=== PATIENT | male | born 1970 | race Caucasian/White ===

== ENCOUNTER → 2019-08-14 09:17 | Outpatient (CLI) | payer BC, SELFPAY ==
--- NOTE | ~2019-08-14 | XR_ITS ---
XR_[id number]_CR 08/14/2019 09:36 Indication: Cervicalgia Procedure: 4 view cervical spine Comparison: No prior studies for comparison. Findings: Normal cervical alignment. There is mild disc narrowing at C5-6. No prevertebral soft tissu e abnormality. There are mild uncinate degenerative changes. No fracture or traumatic malalignment. O dontoid process within normal limits. Lung apices are unremarkable. Impression: 1: Mild cervical spondylosis. Reviewed, dictated and finalized at location A. Impression: 1: Mild cervical spondylosis.
--- NOTE | ~2019-08-14 | XR_ITS ---
EXAMINATION: XR shoulder RT min 2V DATE: 08/14/2019 09:36 INDICATION: Right shoulder pain TECHNIQUE: AP internally and externally rotated, AP oblique externally rotated and axillary views of the right shoulder were obtained. COMPARISON: None FINDINGS: Normal alignment. No fracture. Glenohumeral joint is normal. Acromioclavicular joint is normal. Soft tissues are unremarkable. IMPRESSION: Normal right shoulder radiographs. Reviewed, dictated and finalized at location A.
== END ==
PROVIDERS: PCP Internal Medicine; Visit Provider Nurse Practitioner
DX: M25.511 Pain in right shoulder (principal); M47.892 Other spondylosis, cervical region
CPT/HCPCS: 72040; 73030

== ENCOUNTER → 2019-09-04 08:41 | Outpatient (CLI) | payer BC, SELFPAY ==
--- NOTE | ~2019-09-04 | MR_ITS ---
EXAMINATION: MR cervical spine wo con DATE: 09/04/2019 09:50 INDICATION: Cervicalgia TECHNIQUE: Magnetic resonance imaging (MRI) of the cervical spine was performed without intravenous c ontrast. Sequences included sagittal T2-weighted FSE, sagittal T2-weighted FS FSE, sagittal T1-weight ed FSE, axial MERGE and axial T2-weighted FSE. COMPARISON: None FINDINGS: Bone alignment is normal. Vertebral body heights are normal. Bone marrow signal intensity is normal . Mild disc desiccation with relatively preserved disc heights throughout the cervical spine. Cord si gnal intensity is normal. Cervical soft tissues are unremarkable. The following disc levels are speci fically discussed: C2-C3: The disc does not extend beyond the endplate margin. There is minimal bilateral uncovertebral joint osteoarthritis. There is mild bilateral facet joint osteoarthritis. There is no neural foramina l stenosis. There is no central canal stenosis. C3-C4: Disc is mildly bulging. There is mild bilateral uncovertebral joint osteoarthritis. There is m ild right and moderate left facet joint osteoarthritis. There is mild bilateral neural foraminal sten osis. There is minimal central canal stenosis. C4-C5: Disc is mildly bulging with annular fissure and superimposed small right paracentral disc prot rusion. There is mild left and moderate right uncovertebral joint osteoarthritis. There is mild right and severe left facet joint osteoarthritis. There is mild left and mild to moderate right neural for aminal stenosis. There is mild central canal stenosis. C5-C6: Disc is mildly bulging with central annular fissure. There is mild left and moderate right unc overtebral joint osteoarthritis. There is mild right and moderate left facet joint osteoarthritis. Th ere is mild bilateral neural foraminal stenosis. There is mild central canal stenosis. C6-C7: Disc is minimally bulging. There is mild bilateral uncovertebral joint osteoarthritis. There i s mild bilateral facet joint osteoarthritis. There is no neural foraminal stenosis. There is no centr al canal stenosis. C7-T1: The disc does not extend beyond the endplate margin. There is mild left and moderate right unc overtebral joint osteoarthritis. There is no facet joint osteoarthritis. There is no neural foraminal stenosis. There is no central canal stenosis. IMPRESSION: 1. Mild to moderate cervical spondylosis. Reviewed, dictated and finalized at location A.
--- NOTE | ~2019-09-04 | MR_ITS ---
EXAMINATION: MR lumbar spine wo con DATE: 09/04/2019 09:51 INDICATION: Low back pain TECHNIQUE: Magnetic resonance imaging (MRI) of the lumbar spine was performed without intravenous con trast. Sequences included sagittal T2-weighted FSE, sagittal T2-weighted FS FSE, sagittal T1-weighted FSE, and axial T2-weighted FSE. COMPARISON: 02/09/2017 FINDINGS: 3 mm retrolisthesis L5 on S1. Vertebral body heights are normal. Mild disc height loss at L4-L5 and L 5-S1 with increased fibrovascular degenerative endplate changes at L5-S1. Remaining discs are normal. Otherwise normal bone marrow signal. The conus medullaris terminates at L2. There is normal signal i n the caudal spinal cord. Paravertebral soft tissues are unremarkable. The following disc levels are specifically discussed: T12-L1: The disc does not extend beyond the endplate margin. There is minimal bilateral facet joint o steoarthritis. There is no neural foraminal stenosis. There is no central canal stenosis. L1-L2: The disc does not extend beyond the endplate margin. There is minimal bilateral facet joint os teoarthritis. There is no neural foraminal stenosis. There is no central canal stenosis. L2-L3: Disc is minimally bulging with superimposed small left foraminal zone disc protrusion There is mild bilateral facet joint osteoarthritis. There is mild left neural foraminal stenosis. There is no central canal stenosis. L3-L4: Disc is minimally bulging. There is mild right and mild to moderate left facet joint osteoarth ritis. There is mild left neural foraminal stenosis. There is no central canal stenosis. L4-L5: Mild diffuse disc bulge with annular fissure. There is mild left and minimal right facet joint osteoarthritis. There is mild bilateral neural foraminal stenosis. There is no central canal stenosi s. L5-S1: Mild diffuse disc bulge with annular fissure. There is mild right and mild to moderate left fa cet joint osteoarthritis. There is mild right and moderate left neural foraminal stenosis. There is n o central canal stenosis. IMPRESSION: 1. Minimal progression of still mild lumbar spondylosis. Reviewed, dictated and finalized at location A.
== END ==
PROVIDERS: PCP Internal Medicine
DX: M47.892 Other spondylosis, cervical region (principal); M47.896 Other spondylosis, lumbar region
CPT/HCPCS: 72141; 72148

== ENCOUNTER 2019-12-22 00:32 | Outpatient (CLI) | payer BC, SELFPAY ==
[2019-12-22 18:30] LABS: SARS-CoV-2 RNA PCR Negative
== END 2019-12-22 00:33 | disposition home or self-care (01) ==
LOC: ANHCOVIDDT 00:32
PROVIDERS: PCP Internal Medicine; Visit Provider Internal Medicine Gastroenterology
DX: Z01.812 Encounter for preprocedural laboratory examination (principal); Z11.59 Encounter for screening for other viral diseases
CPT/HCPCS: 87635; C9803; U0003

== ENCOUNTER 2019-12-25 02:06 | Day surgery (SDC) | payer BC, SELFPAY ==
[2019-12-19 09:38] VITALS: BMI 32.5
--- NOTE | 2019-12-25 07:42 | P.PNAN_ITS ---
Anes - Initial Pre Proc Eval Procedure: Operation Date: 12/25/19 10:30 Proposed Procedures p Screening Colonoscopy - Elie Baca MD Date/Time: 12/25/19 07:42 Surgeon: Elie Baca MD Pre Op Diagnosis: Neoplasm Screening Patient Data Age: 49 Gender: M Height: 1.91 m Weight: 118.18 kg Allergies Allergy/AdvReac Type Severity Reaction Status Date / Time No Known Allergies Allergy Verified 12/25/19 09:24 Home Medications Medication Instructions Recorded Confirmed Type lansoprazole 30 mg capsule,delayed 30 mg PO DAILY #90 cap 07/10/19 12/25/19 Rx release atorvastatin 20 mg tablet See Rx Instructions .ROUTE 10/16/19 12/25/19 Rx .COMPLEX #90 tablet cholecalciferol (vitamin D3) 125 mcg PO DAILY 12/19/19 12/25/19 History [Vitamin D3] lactobacillus combination no.8 3,000 mmu cells PO DAILY 12/19/19 12/25/19 His tory [Adult Probiotic] magnesium oxide 400 mg PO DAILY 12/19/19 12/25/19 History Patient hx anesthesia problems: none Family hx anesthesia problems: none PMFSH Past Medical History Medical History (Updated 12/25/19 @ 07:41 by Paul Stanton DO) Fatty liver Gastro-esophageal reflux disease without esophagitis Hyperlipidemia Family History Family History (Updated 10/04/18 @ 07:04 by DOCTOR UNKNOWN) Father Family history of pancreatic cancer Family history of malignant neoplasm of kidney Patient's father is Acute myocardial infarction Mother Patient's mother is in good health Patient's mother is Other Cerebrovascular accident Family history of allergic disorder Family history of cardiovascular disease Family history of kidney disease Social History Social History Smoking status: Never smoker Alcohol intake: current Anes - Eval Final PreProcedure Day of Procedure 12/25/19 07:42 Patient weight: obese Heart: regular rate and rhythm Lungs: clear to auscultation and normal air movement Airway: Mallampati scale Neurological: alert and oriented Last oral intake: >/= 8 hours ASA classification: III Emergent: no Anesthetic plan: proceed Anesthesia type and monitoring: general GIVS and standard monitoring Informed Consent: The patient's anesthetic plan and its attendant risks and benefits were discussed with the patient/family/POA. Questions were solicited and answers provided to the satisfaction of the patient/family/POA.
[2019-12-25] MEDS: LACTATED RINGERS 1,000 ML 150 ML IV CONT (09:39)
[2019-12-25 09:47] VITALS: BP 122/87; PULSE 88; RESP 18; TEMP 36.1; O2SAT 97
--- NOTE | 2019-12-25 10:34 | PM.HPGS ---
History of Present Illness History of Present Illness Consent: Risks, benefits, and alternatives have been discussed and questions answered. Patient agrees to proceed with procedure. Chief complaint: Neoplasm Screening Narrative: Jonathan Gomez is a 49 year old male here for his first screening colonoscopy. Review of Systems Constitutional: Constitutional: Denies headache(s) and Denies weakness Eyes: Eyes: Denies blurry vision ENT: Reports Normal hearing present, Denies headache(s) and Denies neck pain Cardiovascular: Cardiovascular: Denies chest pain and Denies dyspnea Respiratory: Respiratory: Denies dyspnea Gastrointestinal: Gastrointestinal: Reports no additional gastrointestinal complaints Genitourinary: Genitourinary: Denies dysuria Musculoskeletal: Musculoskeletal: Denies neck pain Integumentary/Breasts: Skin/Breast: Denies dry skin Neurologic: Reports Normal hearing present, Denies headache(s) and Denies weakness Psychiatric: Psychiatric: Denies anxiety Endocrine: Endocrine: Denies change in body appearance Hematologic/Lymphatic: Hematologic/Lymphatic: Denies easy bleeding Allergic/Immunologic: Allergic/Immunologic: Denies urticaria PMF Past Medical History Medical History (Updated 12/25/19 @ 10:34 by Elie Baca MD) Colon cancer screening Fatty liver Gastro-esophageal reflux disease without esophagitis Hyperlipidemia Family History Family History (Updated 10/04/18 @ 07:04 by DOCTOR UNKNOWN) Father Family history of pancreatic cancer Family history of malignant neoplasm of kidney Patient's father is Acute myocardial infarction Mother Patient's mother is in good health Patient's mother is Other Cerebrovascular accident Family history of allergic disorder Family history of cardiovascular disease Family history of kidney disease Social History Social History Smoking status: Never smoker Alcohol intake: current Meds Home Medications and Allergies Home Medications Medication Instructions Recorded Confirmed Type lansoprazole 30 mg capsule,delayed 30 mg PO DAILY #90 cap 07/10/19 12/25/19 Rx release atorvastatin 20 mg tablet See Rx Instructions .ROUTE 10/16/19 12/25/19 Rx .COMPLEX #90 tablet cholecalciferol (vitamin D3) 125 mcg PO DAILY 12/19/19 12/25/19 History [Vitamin D3] lactobacillus combination no.8 3,000 mmu cells PO DAILY 12/19/19 12/25/19 History [Adult Probiotic] magnesium oxide 400 mg PO DAILY 12/19/19 12/25/19 History Allergies Allergy/AdvReac Type Severity Reaction Status Date / Time No Known Allergies Allergy Verified 12/25/19 09:24 Vital Signs Vital Signs - 24 hr 12/25/19 09:47 Temperature 96.9 F L Pulse Rate 88 Respiratory Rate 18 Blood Pressure 122/87 Pulse Oximetry 97 Exam Const: General: comfortable and no acute distress HENMT: General nose exam: Normal nares present Eyes: General: appearance normal, both eyes and all related structures Neck: Neck: no JVD Resp: Auscultation: clear to auscultation bilaterally Cardio: Rate: regular rate Rhythm: regular rhythm GI: Inspection: non-distended GI Palp: Yes Soft to palpation Skin: General skin exam: normal color Neuro: General: gait normal Speech: normal speech Extrem: General: normal to inspection Psych: Mental Status: mental status grossly normal Assessment and Plan Assessment and plan (1) Colon cancer screening: Code(s): Z12.11 - Encounter for screening for malignant neoplasm of colon Status: Acute Assessment and Plan: will proceed with colonoscopy
[2019-12-25 11:00] VITALS: BP 111/79; PULSE 90; RESP 18; O2SAT 92
[2019-12-25 11:10] VITALS: BP 107/76; PULSE 74; RESP 19; O2SAT 94
[2019-12-25 11:20] VITALS: BP 107/75; PULSE 72; RESP 20; O2SAT 95
== END 2019-12-25 11:40 | disposition home or self-care (01) ==
PROVIDERS: PCP Internal Medicine; Visit Provider Internal Medicine Gastroenterology
PROC: 0DJD8ZZ Inspection of Lower Intestinal Tract, Via Natural or Artificial Opening Endoscopic (ICD-10-PCS; CPT 45378; principal; 2019-12-25 10:30)
DX: Z12.11 Encounter for screening for malignant neoplasm of colon (principal); D12.2 Benign neoplasm of ascending colon; K76.0 Fatty (change of) liver, not elsewhere classified; K21.9 Gastro-esophageal reflux disease without esophagitis; E78.5 Hyperlipidemia, unspecified; E66.9 Obesity, unspecified; Z68.33 Body mass index [BMI] 33.0-33.9, adult
CPT/HCPCS: 45385; 88305; J2001; J2704; J7120

== ENCOUNTER 2022-06-02 10:01 | Outpatient (CLI) | payer BC, SELFPAY ==
--- NOTE | 2022-06-02 11:00 | NEURO_ITS ---
Impression: # Complains of numbness of upper extremities. # Normal nerve conduction study. # Normal needle/EMG exam. # Clinical correlation recommended. Motor Nerve Conduction Upper Extremities Median Nerve Conduction Velocity (m/sec) Terminal Latency (msec) Response Voltage(mV) Elbow-Wrist Wrist Elbow Wrist Right 55 3.4 2 3 Left 59 3.4 3 2 Ulnar Nerve Conduction Velocity (m/sec) Terminal Latency (msec) Response Voltage(mV) Above Elbow Below Elbow Wrist Above Elbow Below Elbow Wrist Right 56 2.7 4 6 Left 60 3.1 4 5 F-Wave Latency Median (ms) Ulnar (ms) Right 29.5 30.6 Left 29.2 31.0 Sensory Nerve Conduction Upper Extremities Median Nerve Stimulation Terminal Latency (msec) Wrist/Digit Response Voltage (uV) Wrist Right 3.2/3.0 55/34 Left 2.8/2.8 59/58 Ulnar Nerve Stimulation Terminal Latency (msec) Wrist/Digit Response Voltage (uV) Wrist Right 2.8 45 Left 2.7 54 Radial Nerve Terminal Latency (msec) Response Voltage(mV) Right 2.2 15 Left 2.3 12 Left Right Muscles Examined Fibrillation Fasciculation Scarcity Voltage Duration Left Right Left Right Left Right Left Right Left Right X X Deltoid X X Biceps X X Brachioradialis X X Triceps X X Pronator Teres X X Ext Indicis X X Ext Digitorum X X Abd Poll Brev X X 1st Dorsal Interosseus X X Abd Dig Min MTDD
== END 2022-06-02 10:02 | disposition home or self-care (01) ==
LOC: ANHNEURO 10:06
PROVIDERS: PCP Internal Medicine; Visit Provider Internal Medicine
DX: R20.2 Paresthesia of skin (principal)
CPT/HCPCS: 95886; 95911

== ENCOUNTER → 2022-06-28 10:42 | Outpatient (CLI) | payer BC, SELFPAY ==
--- NOTE | ~2022-06-28 | XR_ITS ---
Cervical Spine: AP, lateral, open-mouth views Clinical History: Pain Findings: The normal lordotic curve is maintained. The vertebral bodies and posterior elements appea r intact. The intervertebral disc spaces are well maintained. There is mild facet joint degenerative change at C4-C5 and C5-C6. Pre-vertebral soft tissues are unremarkable. Impression: Mild facet arthropathy, as above. Reviewed, dictated and finalized at location . UTER COMPOSITOR Impression: Mild facet arthropathy, as above.
== END ==
PROVIDERS: PCP Internal Medicine; Visit Provider Internal Medicine
DX: M54.2 Cervicalgia (principal); M12.88 Other specific arthropathies, not elsewhere classified, other specified site
CPT/HCPCS: 72040

== ENCOUNTER → 2022-07-22 07:33 | Outpatient (CLI) | payer BC, SELFPAY ==
--- NOTE | ~2022-07-22 | MR_ITS ---
MRI of the cervical spine Clinical History: Radiculopathy Technique: Axial T2-weighted and gradient images, and sagittal T1-weighted, T2-weighted, and STIR kiki ges were acquired. Findings: There is no fracture or subluxation of the cervical spine. Vertebral bodies maintain normal height and alignment. No bone marrow signal abnormality seen. At C2-C3, C3-C4, there is no disc bulge or herniation. No spinal canal stenosis or neural foraminal n arrowing at these levels. At C4-C5, there is minimal disc osteophyte complex, most prominent towards the right paracentral chapo on. No rod spinal canal stenosis or cord compression. There is mild right neural foraminal narrowin g. Left neural foramen preserved. At C5-C6, there is no significant disc bulge or herniation. No spinal canal stenosis, cord compressio n, or neural foraminal narrowing. At C6-C7, there is no disc bulge or herniation. No spinal canal stenosis, cord compression, or neural foraminal narrowing. No abnormal signal seen in the spinal cord. Paravertebral soft tissues are unremarkable. Impression: Probable mild right neural foraminal narrowing at C4-C5, related to disc osteophyte complex. [place], dictated [place] [facility] 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
== END ==
PROVIDERS: PCP Internal Medicine; Visit Provider Nurse Practitioner Family
DX: M54.12 Radiculopathy, cervical region (principal)
CPT/HCPCS: 72141

== ENCOUNTER → 2022-09-16 09:33 | Outpatient (CLI) | payer BC, SELFPAY ==
--- NOTE | ~2022-09-16 | XR_ITS ---
EXAMINATION: XR lumbar spine 2-3V DATE: 09/16/2022 10:20 INDICATION: Low back pain TECHNIQUE: Anteroposterior and lateral views of the lumbar spine, and cone-down lateral view of the l umbosacral junction were obtained. COMPARISON: 04/28/2012 FINDINGS: There is no fracture. There are 2 mm of retrolisthesis of L5 on S1. There is moderate loss of intervertebral disc space height at L5-S1. The vertebral body heights are maintained. Small degene rative osteophytes project from the anterior endplates of multiple vertebral bodies. IMPRESSION: 1. Moderate lumbar spondylosis at L5-S1 without acute findings. Reviewed, dictated and finalized at location L.
== END ==
PROVIDERS: PCP Physical Medicine & Rehabilitation; Visit Provider Physical Medicine & Rehabilitation
DX: M47.897 Other spondylosis, lumbosacral region (principal)
CPT/HCPCS: 72100

== ENCOUNTER 2022-11-09 05:37 | Emergency (ER) | payer BC, SELFPAY ==
--- NOTE | ~2022-11-09 | CT_ITS ---
Non-contrast CT scan of the Abdomen and Pelvis Clinical indication: Left flank pain Technique: 2.5 mm axial scans were obtained through the abdomen and pelvis without intravenous or or al contrast. Dose reduction technique was used on this scan by utilizing automated exposure control a nd iterative reconstruction technique. The dose-length product (DLP) was 834.36 mGy-cm. COMPARISON: 11/11/2015 Findings: Images through the lung bases reveal stable subcentimeter left lower lobe pulmonary nodule s. Punctate bilateral nonobstructing renal stones are present. 2 mm distal left ureteral stone noted. Pr obable minimal fullness of left renal collecting system. The liver, spleen, pancreas, gallbladder, and adrenals appear normal. There is no aortic aneurysm. There is no evidence of bowel obstruction. Normal appendix. Small fat-containing umbilical hernia pre sent. Images through the pelvis were performed. There is no evidence of ascites or lymphadenopathy. Urinary bladder otherwise unremarkable. Prostate gland and seminal vesicles are unremarkable. Impression: 2 mm distal left ureteral stone with minimal fullness of left renal collecting system. Additional punctate bilateral nonobstructing renal stones. Small fat-containing umbilical hernia. Reviewed, dictated and finalized at [facility]. Impression: 2 mm distal left ureteral stone with minimal fullness of left renal collecting system. Additional punctate bilateral nonobstructing renal stones. Small fat-containing umbilical hernia.
[2022-11-09 05:42] VITALS: BP 156/94; PULSE 70; RESP 16; TEMP 36.4; O2SAT 100
[2022-11-09 05:58] VITALS: PULSE 68; RESP 16; TEMP 36.8; O2SAT 99
[2022-11-09 06:11] LABS: Basophils Percent Auto 0.2 % (0.2-1.2); Eosinophils Percent Auto 0.6 % (0-4.4); Hematocrit 43.9 % (42.0-52.0); Hemoglobin 14.9 g/dL (14.0-18.0); Immature Granulocyte Absolute 0.05 K/mm3 (0.00-0.031); Immature Granulocyte Percent A 0.9 % (0-0.5); Lymphocytes Absolute Auto 2.76 K/mm3 (0.9-3.2); Lymphocytes Percent Auto 50.6 % (18.3-44.2); Mean Corpuscular HGB Conc 33.9 g/dl (32-36); Mean Corpuscular Hemoglobin 29.8 pg (26-34); Mean Corpuscular Volume 87.8 fl (80-100); Mean Platelet Volume 8.8 fl (7.4-10.4); Monocytes Percent Auto 17.8 % (2.6-8.5); Neutrophils Absolute Auto 1.6 K/mm3 (1.3-6.7); Neutrophils Percent Auto 29.9 % (45.5-73.1); Platelet Count Result 180 k/mm3 (150-375); Red Cell Distribution Width 12.8 % (11.5-14.5); White Blood Count 5.5 K/mm3 (4.5-10.0)
[2022-11-09 06:17] LABS: Appearance Urine Clear (Clear); Bacteria Urine None Seen /hpf; Bilirubin Urine Negative (Negative); Blood Urine 3+ (Negative); Color Urine Yellow (Yellow); Glucose Urine UA Negative (Negative); Ketones Urine Negative (Negative); Leukocyte Esterase Ur Negative LEU/UL (Negative); Nitrate Urine Negative (Negative); Non Pathogenic Casts 0-2; Protein Urine 1+ mg/dL (Negative); RBC Urine 51-100 /hpf (0-2); Specific Grav Ur 1.025 (1.001-1.035); Squamous Epithelial Cell Urine None seen /hpf (Few); WBC Urine 0-5 /hpf; pH Urine 5.5 (5.0-9.0)
[2022-11-09 06:21] LABS: Alanine Aminotransferase 42 U/L (6-50); Albumin Level 4.9 g/dL (3.5-5.1); Alkaline Phosphatase 91 U/L (38-126); Anion Gap 8 mmol/L (8-16); Aspartate Amino Transferase 30 U/L (17-59); Bilirubin,Total 0.7 mg/dL (0.2-1.3); Blood Urea Nitrogen 16 mg/dL (9-20); Calcium 9.2 mg/dL (8.4-10.2); Carbon Dioxide 28 mmol/L (22-30); Chloride 105 mmol/L (98-107); Estimated CRCL calculation 90 ml/min; Estimated Glomerular Filt Rate > 60; Glucose 112 mg/dL (65-110); Sodium 141 mmol/L (137-145)
--- NOTE | 2022-11-09 06:21 | ED.ABDPAIN ---
HPI - Abdominal Pain General Chief Complaint: Urogenital-Male Stated Complaint: kidney stone? Time Seen by Provider: 11/09/22 06:05 History of Present Illness HPI narrative: This is a 52-year-old male with past history of hyperlipidemia, who presents emergency department complaining of the left flank pain for the past 1 and half hours. The patient states he was at work when he had sudden onset left flank pain, described as sharp and cramping, rated 8/10 without radiation and associated with nausea. He states this is similar to previous pain felt with a kidney stone. He has no other complaints today. Related Data Home Medications Medication Instructions Recorded Confirmed cholecalciferol (vitamin D3) 125 125 mcg PO DAILY 12/19/19 06/23/22 mcg (5,000 unit) tablet (Vitamin D3) cetirizine 10 mg capsule (Zyrtec) 10 mg PO DAILY PRN 08/18/21 06/23/22 coenzyme [id number] E 100 mg-100 cap PO 08/18/21 06/23/22 unit capsule fluticasone propionate 50 1 spray intranasal DAILY 08/18/21 06/23/22 mcg/actuation nasal spray,suspension (Flonase Allergy Relief) [id number] acid 300 1 tablet PO DAILY 08/18/21 06/23/22 mcg-lycopene 600 mcg-lutein 300 mcg tablet (Centrum Silver Men) zinc sulfate 50 mg zinc (220 mg) 50 mg PO DAILY 04/14/22 06/23/22 tablet Allergies Allergy/AdvReac Type Severity Reaction Status Date / Time No Known Allergies Allergy Verified 10/05/22 13:17 Review of Systems Review of Systems: CONSTITUTIONAL: Sweats denies fever or chills, CARDIOVASCULAR: Denies chest pain, palpitations, or edema. RESPIRATORY: Denies cough or dyspnea. GASTROINTESTINAL: Left flank pain, nausea denies vomiting, or diarrhea. GENITOURINARY: Denies dysuria or hematuria. SKIN: Denies rash or itching. MUSCULOSKELETAL: Denies back pain, joint pain, or myalgia. NEUROLOGIC: Denies headache, numbness, dizziness, or weakness. PSYCHIATRIC: Denies anxiety or depression. [facility] Past Medical History Medical History Colon cancer screening Fatty liver Gastro-esophageal reflux disease without esophagitis Family History Family History Father Family history of pancreatic cancer Family history of malignant neoplasm of kidney Patient's father is Acute myocardial infarction Mother Patient's mother is in good health Patient's mother is Other Cerebrovascular accident Family history of allergic disorder Family history of cardiovascular disease Family history of kidney disease Social History Social History Smoking status: Never smoker Second hand tobacco smoke exposure: No Alcohol intake: current Alcohol use details: occational Substance use: never Substance use type: does not use Lack of Transportation: No Lack of Food: Never True Current Housing: I Have Housing Concerned About Future Housing: No Difficulty Paying Gas/Electric Bills: No Difficulty Paying for Meds: No Currently Unemployed: No Education: Associate Degree Difficulty w/ Childcare or Family Care: No Exam Narrative: GENERAL: Well-developed, well-nourished, in moderate distress due to pain. Appears diaphoretic HEAD: Normocephalic, atraumatic. EYES: PERRLA and EOMI. ENT: Nares clear, no rhinorrhea or epistaxis. Mucous membranes moist. Oropharynx without tonsillar hypertrophy exudate or other lesions CHEST: Clear to auscultation. No respiratory distress. No wheezes rales or rhonchi HEART: Regular rate and rhythm. No murmur heard. Normal peripheral pulses. ABDOMEN: Soft, nontender, nondistended, normal active bowel sounds. Left CVA tenderness to palpation, no CVA tenderness on the right EXTREMITIES: Normal range of motion. No edema. SKIN: Warm, dry, no rash. NEURO: No focal deficits. Alert and oriented x3. PS
--- NOTE | 2022-11-09 06:26 | PC.NURSE ---
Pt to CT scan at this time
[2022-11-09 06:35] LABS: Add Urine Microscopic? YES
[2022-11-09 06:35] LABS: Lipase 144 U/L (23-300)
[2022-11-09] MEDS: ONDANSETRON INJ 4 MG/2 ML VIAL IV PUSH (06:37)
[2022-11-09] MEDS: KETOROLAC 30 MG/ML VIAL (*BKC) IV PUSH (06:37)
[2022-11-09] MEDS: SODIUM CHLORIDE 0.9% IV 1,000 ML 999 ML IV CONT (06:37)
== END 2022-11-09 07:29 | disposition home or self-care (01) ==
PROVIDERS: Emergency Provider Preventive Medicine Aerospace Medicine; PCP Family Medicine
DX: N20.2 Calculus of kidney with calculus of ureter (principal); K21.9 Gastro-esophageal reflux disease without esophagitis; K42.9 Umbilical hernia without obstruction or gangrene
CPT/HCPCS: 36415; 74176; 80053; 81001; 83690; 85025; 96361; 96374; 96375; 99284; J1885; J2405; J7030

== ENCOUNTER → 2023-06-06 06:56 | Outpatient (CLI) | payer BC, SELFPAY ==
--- NOTE | ~2023-06-06 | XR_ITS ---
Supine and upright views of the abdomen Clinical history: Renal stone Findings: Bowel gas pattern is nonspecific. No evidence for obstruction or free air. No abnormal mass lesion or calcification is seen. Osseous structures are intact. Impression: No significant abnormality is seen. Reviewed, dictated and finalized at [facility]. OGRAPHIC PRINTER Impression: No significant abnormality is seen.
== END ==
PROVIDERS: PCP Family Medicine; Visit Provider Urology
DX: Z87.442 Personal history of urinary calculi (principal)
CPT/HCPCS: 74018

== ENCOUNTER 2025-02-01 02:12 | Day surgery (SDC) | payer BC, SELFPAY ==
[2025-01-16 15:02] VITALS: BMI 28.1
[2025-02-01 06:21] VITALS: BP 105/73; PULSE 68; RESP 18; TEMP 36.5; O2SAT 100; BMI 28.1
[2025-02-01] MEDS: LACTATED RINGERS 1,000 ML 150 ML IV CONT (06:39)
--- NOTE | 2025-02-01 06:59 | WPDANESEPPF ---
Anes - Initial Pre Proc Eval Procedure: Operation Date: 02/01/25 07:30 Proposed Procedures p Screening Colonoscopy - Elie Baca MD Date/Time: 02/01/25 06:59 Surgeon: Elie Baca MD Pre Op Diagnosis: Personal history of colon polyps, unspecified Patient Data Age: 54 Gender: M Height: 1.91 m Weight: 102.2 kg Last Vital Signs Temp 36.5 C 02/01/25 06:21 Pulse 68 02/01/25 06:21 Resp 18 02/01/25 06:21 BP 105/73 02/01/25 06:21 Pulse Ox 100 02/01/25 06:21 O2 Del Method Room Air 02/01/25 06:21 Allergies Allergy/AdvReac Type Severity Reaction Status Date / Time No Known Allergies Allergy Verified 02/01/25 06:19 Home Medications ?Medication ?Instructions ?Recorded ?Confirmed ?Type cholecalciferol (vitamin D3) 125 125 mcg PO DAILY 12/19/19 02/01/25 History mcg (5,000 unit) tablet (Vitamin D3) cetirizine 10 mg capsule (Zyrtec) 10 mg PO DAILY PRN allergy symptoms 08/18/21 02/01/25 History fluticasone propionate 50 1 spray intranasal DAILY PRN 08/18/21 01/16/25 History mcg/actuation nasal allergy symptoms spray,suspension (Flonase Allergy Relief) [id number] 300 mcg-K 60 1 tablet PO DAILY 08/18/21 02/01/25 History mcg-lycop 600 mcg-lutein 300 mcg tablet (Centrum [facility]) meloxicam 15 mg tablet 15 mg PO DAILY PRN pain #90 tabs 03/13/24 01/16/25 Rx cyclobenzaprine 10 mg tablet 10 mg PO TID PRN muscle spasm #30 08/20/24 02/01/25 Rx tabs sodium,potassium,mag sulfates 17.5 See Rx Instructions PO .COMPLEX 11/06/24 02/01/25 Rx gram-3.13 gram-1.6 gram oral soln #354 mL (Suprep Bowel Prep Kit) lansoprazole 30 mg capsule,delayed See Rx Instructions .Route 11/28/24 02/01/25 Rx release .COMPLEX #90 caps tirzepatide (weight loss) 10 10 mg (0.5 mL) subcut WEEKLY #2 mL 01/08/25 02/01/25 Rx mg/0.5 mL subcutaneous solution (Zepbound) trazodone 50 mg tablet 50 mg PO DAILY PRN sleep 01/16/25 01/16/25 History Patient hx anesthesia problems: none Family hx anesthesia problems: none Results Review: All pre-operative results and documents have been reviewed as part of the pre-operative evaluation. [facility] Past Medical History Medical History (Updated 01/31/25 @ 14:16 by Paul Stanton DO) Hyperlipidemia Colon cancer screening Fatty liver Gastro-esophageal reflux disease without esophagitis Family History Family History Father Family history of pancreatic cancer Family history of malignant neoplasm of kidney Patient's father is Acute myocardial infarction Mother Patient's mother is in good health Patient's mother is Other Cerebrovascular accident Family history of allergic disorder Family history of cardiovascular disease Family history of kidney disease Social History Social History Smoking status: Former smoker Tobacco type: cigars Second hand tobacco smoke exposure: No Alcohol intake: current Alcohol use details: occational Substance use: never Substance use type: does not use Lack of Transportation: No Lack of Food: Never True Current Housing: I Have Housing Concerned About Future Housing: No Difficulty Paying Gas/Electric Bills: No Difficulty Paying for Meds: No Currently Unemployed: No Education: Associate Degree Difficulty w/ Childcare or Family Care: No Living arrangements: with family Spiritual care concerns: No Anes - Eval Final PreProcedure Day of Procedure 02/01/25 06:59 Patient weight: overweight Heart: regular rate and rhythm Lungs: clear to auscultation Airway: Mallampati scale class II Neurological: alert and oriented Last oral intake: >/= 8 hours ASA classification: III Emergent: no Anesthetic plan: proceed Anesthesia type and monitoring: general GIVS and standard monitoring Results Review: All pre-operative results and documents have been reviewed as part of the pre-operative evaluation. Informed Consent: The patient's anesthetic plan and its attendant risks and benefits were discussed with the patient/family/POA. Questions were solicited and answers provided to the satisfaction of the patient/family/POA.
--- NOTE | 2025-02-01 07:32 | PM.HPGS ---
History of Present Illness History of Present Illness Consent: Risks, benefits, and alternatives have been discussed and questions answered. Patient agrees to proceed with procedure. Chief complaint: Personal history of colon polyps, unspecified Narrative: Jonathan Gomez is a 54 year old male with colon polyp in 2019 Review of Systems Review of Systems: All systems reviewed & are unremarkable except as noted in HPI and below PMFSH Past Medical History Medical History (Updated 01/31/25 @ 14:16 by Paul Stanton DO) Hyperlipidemia Colon cancer screening Fatty liver Gastro-esophageal reflux disease without esophagitis Family History Family History Father Family history of pancreatic cancer Family history of malignant neoplasm of kidney Patient's father is Acute myocardial infarction Mother Patient's mother is in good health Patient's mother is Other Cerebrovascular accident Family history of allergic disorder Family history of cardiovascular disease Family history of kidney disease Social History Social History Smoking status: Former smoker Tobacco type: cigars Second hand tobacco smoke exposure: No Alcohol intake: current Alcohol use details: occational Substance use: never Substance use type: does not use Lack of Transportation: No Lack of Food: Never True Current Housing: I Have Housing Concerned About Future Housing: No Difficulty Paying Gas/Electric Bills: No Difficulty Paying for Meds: No Currently Unemployed: No Education: Associate Degree Difficulty w/ Childcare or Family Care: No Living arrangements: with family Spiritual care concerns: No Meds Home Medications and Allergies Home Medications ?Medication ?Instructions ?Recorded ?Confirmed ?Type cholecalciferol (vitamin D3) 125 125 mcg PO DAILY 12/19/19 02/01/25 History mcg (5,000 unit) tablet (Vitamin D3) cetirizine 10 mg capsule (Zyrtec) 10 mg PO DAILY PRN allergy symptoms 08/18/21 02/01/25 History fluticasone propionate 50 1 spray intranasal DAILY PRN 08/18/21 01/16/25 History mcg/actuation nasal allergy symptoms spray,suspension (Flonase Allergy Relief) [id number] 300 mcg-K 60 1 tablet PO DAILY 08/18/21 02/01/25 History mcg-lycop 600 mcg-lutein 300 mcg tablet (Centrum [facility]) meloxicam 15 mg tablet 15 mg PO DAILY PRN pain #90 tabs 03/13/24 01/16/25 Rx cyclobenzaprine 10 mg tablet 10 mg PO TID PRN muscle spasm #30 08/20/24 02/01/25 Rx tabs sodium,potassium,mag sulfates 17.5 See Rx Instructions PO .COMPLEX 11/06/24 02/01/25 Rx gram-3.13 gram-1.6 gram oral soln #354 mL (Suprep Bowel Prep Kit) lansoprazole 30 mg capsule,delayed See Rx Instructions .Route 11/28/24 02/01/25 Rx release .COMPLEX #90 caps tirzepatide (weight loss) 10 10 mg (0.5 mL) subcut WEEKLY #2 mL 01/08/25 02/01/25 Rx mg/0.5 mL subcutaneous solution (Zepbound) trazodone 50 mg tablet 50 mg PO DAILY PRN sleep 01/16/25 01/16/25 History Allergies Allergy/AdvReac Type Severity Reaction Status Date / Time No Known Allergies Allergy Verified 02/01/25 06:19 Vital Signs Vital Signs - 24 hr 02/01/25 06:21 Temperature 97.7 F Pulse Rate 68 Respiratory Rate 18 Blood Pressure 105/73 Pulse Oximetry 100 Oxygen Delivery Room Air Exam Const: General: comfortable and no acute distress HENMT: Face/Nose/Sinus: Normal nares present Eyes: General: appearance normal, both eyes and all related structures Neck: Neck: no JVD Resp: Auscultation: clear to auscultation bilaterally Cardio: Rate: regular rate Rhythm: regular rhythm GI: Inspection: non-distended GI Palp: Yes Soft to palpation Skin: General skin exam: normal color Neuro: Speech: normal speech Extrem: General: normal to inspection Psych: Mental Status: mental status grossly normal Assessment and Plan Assessment and plan (1) Colon polyp: Code(s): K63.5 - Polyp of colon Status: Acute Assessment and Plan: colonoscopy
[2025-02-01 07:43] VITALS: BP 88/51; PULSE 75; RESP 18; O2SAT 98
[2025-02-01 07:53] VITALS: BP 105/67; PULSE 74; RESP 15; O2SAT 100
[2025-02-01 08:03] VITALS: BP 96/70; PULSE 68; RESP 16; O2SAT 100
== END 2025-02-01 08:05 | disposition home or self-care (01) ==
PROVIDERS: PCP Family Medicine; Referring Provider Family Medicine; Visit Provider Internal Medicine Gastroenterology
PROC: 0DJD8ZZ Inspection of Lower Intestinal Tract, Via Natural or Artificial Opening Endoscopic (ICD-10-PCS; CPT 45378; principal; 2025-02-01 07:30)
DX: Z12.11 Encounter for screening for malignant neoplasm of colon (principal); E78.5 Hyperlipidemia, unspecified; K21.9 Gastro-esophageal reflux disease without esophagitis; Z79.85 Long-term (current) use of injectable non-insulin antidiabetic drugs; Z87.891 Personal history of nicotine dependence; Z86.0100 Personal history of colon polyps, unspecified; Z80.0 Family history of malignant neoplasm of digestive organs; Z80.51 Family history of malignant neoplasm of kidney; Z82.49 Family history of ischemic heart disease and other diseases of the circulatory system
CPT/HCPCS: 45378; J7120